=== PATIENT | female | born 1995 | race African-American/Black ===

== ENCOUNTER 2018-07-14 17:22 | Emergency (ER) | payer OTHER ==
[2018-07-14 17:29] VITALS: BP 144/89
[2018-07-14] MEDS ORDERED: IBUPROFEN 800 MG TABLET PO STA (17:48)
--- NOTE | 2018-07-14 17:49 | ED Physician Documentation ---
History of Present Illness - Stated complaint Stated Complaint: FEMALE /BLEED - Chief complaint Chief Complaint: General - History obtained from History obtained from: Patient - History of Present Illness Timing: Other (She is on oral contraceptive pill from which she does not take breaks. She been on it for about 3 months and has not had any periods or bleeding in that time. Starting 3 days ago she was spotting and then progressed to heavier bleeding with clots. She feels a little weak and dizzy and has some pelvic cramping and back pain with it. She has not missed any doses of her control.) Review of Systems Constitutional: reports: Reviewed and negative Cardiac: reports: Reviewed and negative Respiratory: reports: Reviewed and negative PD PAST MEDICAL HISTORY - Past Medical History Past Medical History: No - Present Medications Home Medications: Ambulatory Orders Medication Instructions Recorded Confirmed Estradiol 2 mg PO DAILY #6 tablet 07/14/18 - Allergies Allergies/Adverse Reactions: Allergies Allergy/AdvReac Type Severity Reaction Status Date / Time No Known Drug Allergies Allergy Verified 07/14/18 17:29 PD ED PE NORMAL - Vitals Vital signs reviewed: Yes - General General: Alert and oriented X 3, No acute distress - Abdomen Abdomen: Normal bowel sounds, Soft, Non tender - Back Back: No CVA TTP, No spinal TTP - Neuro Neuro: Alert and oriented X 3, Normal speech Results - Vitals Vitals: Vital Signs - 24 hr 07/14/18 17:24 Temperature 36.8 C Heart Rate 77 Respiratory 14 Rate Blood Pressure 144/89 H O2 Saturation 100 Oxygen O2 Source Room air - Labs Labs: Laboratory Tests 07/14/18 07/14/18 07/14/18 18:11 18:11 18:23 WBC 8.7 RBC 4.75 Hgb 10.7 L Hct 33.4 L MCV 70.3 L MCH 22.6 L MCHC 32.1 RDW 17.4 H Plt Count 427 MPV 7.1 L Neut # (Auto) 5.7 Lymph # (Auto) 2.3 [place] # (Auto) 0.6 Eos # (Auto) 0.0 Baso # (Auto) 0.1 Absolute Nucleated RBC 0.00 Nucleated RBC % 0.0 Serum HCG, Qual NEGATIVE Urine Color YELLOW Urine Clarity CLEAR Urine pH 7.5 Ur Specific [place] 1.010 Urine Protein NEGATIVE Urine Glucose (UA) NEGATIVE Urine Ketones NEGATIVE Urine Occult Blood MODERATE H Urine Nitrite NEGATIVE Urine Bilirubin NEGATIVE Urine Urobilinogen 0.2 (NORMAL) Ur Leukocyte Esterase NEGATIVE Ur Microscopic Review INDICATED Urine Culture Comments Not Reportable PD MEDICAL DECISION MAKING - ED course ED course: This is a young woman with normal hemodynamics who presents with breakthrough bleeding on oral contraceptive pills. Enough to make her mildly anemic. No prior numbers are available for comparison. She is started on estrogen in addition to her combination pill to stanch the bleeding. Departure - Departure Disposition: Home, Self Care Clinical Impression: Breakthrough bleeding on control pills Anemia Qualifiers: Anemia type: unspecified type Qualified Code(s): D64.9 - Anemia, unspecified Condition: Good Record reviewed to determine appropriate education?: Yes Instructions: ED Bleed Irregular Vaginal Follow-Up: [facility] [Provider Group] - Within 1 week Prescriptions: Estradiol 2 mg PO DAILY #6 tablet Comments: Call your doctor to arrange a follow-up appointment, make the next available appointment. In the interim, return anytime if worse or if new symptoms develop.
[2018-07-14 18:23] LABS: BASOPHILS # (AUTO) 0.1 10^3/uL (0.0-0.1); BASOPHILS % (AUTO) 1.3 %; EOSINOPHILS % (AUTO) 0.5 %; HGB - HEMOGLOBIN 10.7 g/dL (12.0-16.0); LYMPHOCYTES # (AUTO) 2.3 10^3/uL (1.5-3.5); LYMPHOCYTES % (AUTO) 26.4 %; MEAN CORPUSCULAR HEMOGLOBIN 22.6 pg (27.0-31.0); MEAN CORPUSCULAR HGB CONC 32.1 g/dL (32.0-36.0); MEAN CORPUSCULAR VOLUME 70.3 fL (81.0-99.0); MEAN PLATELET VOLUME 7.1 fL (7.9-10.8); MONOCYTES # (AUTO) 0.6 10^3/uL (0.0-1.0); MONOCYTES % (AUTO) 6.8 %; NEUTROPHILS # (AUTO) 5.7 10^3/uL (1.5-6.6); PLT - PLATELET COUNT 427 10^3/uL (130-450); RED BLOOD COUNT 4.75 10^6/uL (4.20-5.40); RED CELL DISTRIBUTION WIDTH 17.4 % (12.0-15.0); WHITE BLOOD COUNT 8.7 x10^3/uL (4.8-10.8)
[2018-07-14 18:47] LABS: HCG,QUALITATIVE BLOOD NEGATIVE
[2018-07-14 18:53] LABS: BILIRUBIN,URINE NEGATIVE (NEGATIVE); GLUCOSE, URINE (UA) NEGATIVE (NEGATIVE); KETONES,URINE (UA) NEGATIVE (NEGATIVE); LEUKOCYTE ESTERASE, URINE NEGATIVE (NEGATIVE); NITRITE,URINE NEGATIVE (NEGATIVE); OCCULT BLOOD,URINE MODERATE (NEGATIVE); PH,URINE 7.5 PH (5.0-7.5); PROTEIN,URINE NEGATIVE (NEGATIVE); UROBILINOGEN,URINE 0.2 (NORMAL) E.U./dL (NORMAL)
[2018-07-14] MEDS ORDERED: ESTRADIOL 1 MG TABLET PO STA (18:53)
[2018-07-14 18:57] LABS: CLARITY,URINE CLEAR (CLEAR)
[2018-07-14 19:14] LABS: BACTERIA,URINE Few /HPF (None Seen); RBC,URINE 0-5 /HPF (0-5); SQUAMOUS EPITHELIAL CELL,UR FEW Squamous (<= Few)
== END 2018-07-14 19:10 | disposition home or self-care (01) ==
LOC: ED 17:22
DX: D50.0 Iron deficiency anemia secondary to blood loss (chronic) (principal); N93.9 Abnormal uterine and vaginal bleeding, unspecified; Z79.3 Long term (current) use of hormonal contraceptives
CPT/HCPCS: 36415; 81001; 84703; 85025; 86900; 86901; 99283; A9270; 81003; 87086

== ENCOUNTER 2018-07-23 22:57 | Emergency (ER) | payer OTHER ==
--- NOTE | 2018-07-23 23:17 | ED Physician Documentation ---
History of Present Illness - Stated complaint Stated Complaint: ABD PX/VOMITING - Chief complaint Chief Complaint: Abd Pain - History obtained from History obtained from: Patient - History of Present Illness Timing: Prior to arrival - Additonal information Additional information: Patient is a previously healthy 22-year-old female presenting with left-sided abdominal pain that began about 3 hours ago after eating chips. Patient also complains of nausea and vomiting, but denies fever, urinary changes, stool changes, vaginal complaints such as new vaginal bleeding. Patient denies symptoms being similar to acid reflux, although she describes discomfort as burning. However, patient was seen for abnormal vaginal bleeding last week and started on estradiol. Patient has not taken any medications prior to arrival. No other improving or worsening symptoms noted. 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 : None HEENT: None Psych: None Musculoskeletal: None Derm: None - Past Surgical History Past Surgical History: No - Present Medications Home Medications: Ambulatory Orders Medication Instructions Recorded Confirmed Estradiol 2 mg PO DAILY #6 tablet 07/14/18 07/23/18 - Allergies Allergies/Adverse Reactions: Allergies Allergy/AdvReac Type Severity Reaction Status Date / Time No Known Drug Allergies Allergy Verified 07/23/18 23:03 - Social History Does the pt smoke?: No Smoking Status: Never smoker Does the pt drink ETOH?: Yes Does the pt have substance abuse?: No - Immunizations Immunizations are current?: Yes - POLST Patient has POLST: No PD ED PE NORMAL - Vitals Vital signs reviewed: Yes - General General: Alert and oriented X 3, No acute distress, Well developed/nourished - HEENT HEENT: Atraumatic, Moist mucous membranes - Cardiac Cardiac: RRR, No murmur - Respiratory Respiratory: No respiratory distress, Clear bilaterally - Abdomen Abdomen: Normal bowel sounds, Soft, Non distended. No: Non tender (Moderate left-sided diffuse pain with palpation) - Derm Derm: Normal color, Warm and dry, No rash - Extremities Extremities: No deformity, No tenderness to palpate - Neuro Neuro: Alert and oriented X 3, No motor deficit, No sensory deficit - Psych Psych: Normal mood, Normal affect Results - Vitals Vitals: Vital Signs - 24 hr 07/23/18 22:59 Temperature 36.7 C Heart Rate 99 Respiratory 16 Rate Blood Pressure 142/79 H O2 Saturation 100 Oxygen O2 Source Room air - Labs Labs: Laboratory Tests 07/23/18 07/23/18 07/23/18 23:30 23:30 23:30 WBC 10.0 RBC 4.74 Hgb 10.7 L Hct 33.5 L MCV 70.7 L MCH 22.5 L MCHC 31.9 L RDW 17.6 H Plt Count 463 H MPV 7.3 L Neut # (Auto) 6.4 Lymph # (Auto) 2.7 [place] # (Auto) 0.7 Eos # (Auto) 0.1 Baso # (Auto) 0.1 Absolute Nucleated RBC 0.00 Nucleated RBC % 0.0 Sodium 139 Potassium 3.5 Chloride 103 Carbon Dioxide 23 Anion Gap 13.0 BUN 10 Creatinine 0.8 Estimated GFR (MDRD) 110 Glucose 88 Calcium 9.2 Total Bilirubin 0.3 AST 15 ALT < 10 L Alkaline Phosphatase 66 Total Protein 8.9 H Albumin 4.0 Globulin 4.9 H Albumin/Globulin Ratio 0.8 L Lipase 50 HCG, Quant < 0.60 Urine Color Urine Clarity Urine pH Ur Specific [place] Urine Protein Urine Glucose (UA) Urine Ketones Urine Occult Blood Urine Nitrite Urine Bilirubin Urine Urobilinogen Ur Leukocyte Esterase Ur Microscopic Review Urine Culture Comments 07/23/18 23:30 WBC RBC Hgb Hct MCV MCH MCHC RDW Plt Count MPV Neut # (Auto) Lymph # (Auto) [place] # (Auto) Eos # (Auto) Baso # (Auto) Absolute Nucleated RBC Nucleated RBC % Sodium Potassium Chloride Carbon Dioxide Anion Gap BUN Creatinine Estimated GFR (MDRD) Glucose Calcium Total Bilirubin AST ALT Alkaline Phosphatase Total Protein Albumin Globulin Albumin/Globulin Ratio Lipase HCG, Quant Urine Color YELLOW Urine Clarity CLEAR Urine pH 6.5 Ur Specific [place] 1.010 Urine Protein NEGATIVE Urine Glucose (UA) NEGATIVE Urine Ketones NEGATIVE Urine Occult Blood TRACE-INTA Urine Nitrite NEGATIVE Urine Bilirubin NEGATIVE Urine Urobilinogen 0.2 (NORMAL) Ur Leukocyte Esterase NEGATIVE Ur Microscopic Review NOT INDICATED Urine Culture Comments NOT INDICATED PD MEDICAL DECISION MAKING - ED course Complexity details: reviewed results, re-evaluated patient, considered differential, d/w patient, d/w family ED course: Patient presenting with left-sided abdominal discomfort after eating earlier tonight. Do feel that patient could be experiencing foodborne or viral illness. Given location also considered splenomegaly or other spleen complication, although feel this is highly unlikely. Also consider diverticulitis and again given age and otherwise healthy, also feel less likely. Do not feel patient was at high risk for appendicitis, liver disease, pancreatitis, or gallbladder disease, but considered. Patient also denied symptoms that would raise high suspicion for renal disease, UTI, or pelvic complications including , ovarian torsion, or ovarian cyst, however, considered. Patient received IV fluid and GI cocktail. Screening lab work and urinalysis obtained. negative. No evidence of UTI. Screening lab work relatively unremarkable except for mild anemia, likely due to heavy vaginal bleeding recently that has since resolved. Do not feel patient requires emergent imaging at this time, but can be discharged home with supportive cares with strict return precautions and close follow-up. Discussed results and recommendations with patient and family who are comfortable with this plan. Departure - Departure Disposition: 01 Home, Self Care Clinical Impression: Abdominal pain Qualifiers: Abdominal location: left lower quadrant Qualified Code(s): R10.32 - Left lower quadrant pain Condition: Good Instructions: ED Abdominal Pain Unkn Cause Follow-Up: Janak Casillas MD [Primary Care Provider] - Within 3 Days Comments: Please continue any home medications as previously instructed. Recommend hydration with Powerade/Gatorade and bland diet advancing as tolerated. Recommend ibuprofen/Tylenol as needed for discomfort and if struggling with producing bowel movements, [id number] laxative or stool softener. Return to ED immediately if experience worsening pain, recurrent vomiting, fever, stool changes, urinary changes, back pain or other concerns. Please follow-up with primary care physician in next 2 to 3 days.
[2018-07-23] MEDS ORDERED: MAG HYDROX/AL HYDROX/SIMETH 30 ML UDC PO STA (23:24)
[2018-07-23] MEDS ORDERED: SODIUM CHLORIDE 0.9% 1,000 ML IV ONE (23:24)
[2018-07-23 23:45] LABS: BASOPHILS # (AUTO) 0.1 10^3/uL (0.0-0.1); BASOPHILS % (AUTO) 1.4 %; EOSINOPHILS # (AUTO) 0.1 10^3/uL (0.0-0.7); EOSINOPHILS % (AUTO) 0.5 %; HGB - HEMOGLOBIN 10.7 g/dL (12.0-16.0); LYMPHOCYTES # (AUTO) 2.7 10^3/uL (1.5-3.5); LYMPHOCYTES % (AUTO) 27.1 %; MEAN CORPUSCULAR HEMOGLOBIN 22.5 pg (27.0-31.0); MEAN CORPUSCULAR HGB CONC 31.9 g/dL (32.0-36.0); MEAN CORPUSCULAR VOLUME 70.7 fL (81.0-99.0); MEAN PLATELET VOLUME 7.3 fL (7.9-10.8); MONOCYTES # (AUTO) 0.7 10^3/uL (0.0-1.0); MONOCYTES % (AUTO) 6.8 %; NEUTROPHILS # (AUTO) 6.4 10^3/uL (1.5-6.6); NEUTROPHILS % (AUTO) 64.2 %; PLT - PLATELET COUNT 463 10^3/uL (130-450); RED BLOOD COUNT 4.74 10^6/uL (4.20-5.40); RED CELL DISTRIBUTION WIDTH 17.6 % (12.0-15.0)
[2018-07-24 00:05] LABS: ALBUMIN/GLOBULIN RATIO 0.8 (1.0-2.2); ALKALINE PHOSPHATASE 66 IU/L (42-121); ALT ALANINE AMINOTRANSFERASE < 10 IU/L (10-60); AST ASPARTATE AMINOTRANSFERASE 15 IU/L (10-42); BILIRUBIN,TOTAL 0.3 mg/dL (0.2-1.0); BUN - BLOOD UREA NITROGEN 10 mg/dL (6-20); CALCIUM 9.2 mg/dL (8.5-10.3); CARBON DIOXIDE - CO2 23 mmol/L (21-32); CHLORIDE 103 mmol/L (101-111); CREATININE 0.8 mg/dL (0.4-1.0); GFR - MDRD 110 (>89); GLUCOSE 88 mg/dL (70-100); LIPASE 50 U/L (22-51); SODIUM 139 mmol/L (135-145); TOTAL PROTEIN 8.9 g/dL (6.7-8.2)
[2018-07-24 00:38] LABS: BILIRUBIN,URINE NEGATIVE (NEGATIVE); GLUCOSE, URINE (UA) NEGATIVE (NEGATIVE); KETONES,URINE (UA) NEGATIVE (NEGATIVE); LEUKOCYTE ESTERASE, URINE NEGATIVE (NEGATIVE); NITRITE,URINE NEGATIVE (NEGATIVE); OCCULT BLOOD,URINE TRACE-INTA (NEGATIVE); PH,URINE 6.5 PH (5.0-7.5); PROTEIN,URINE NEGATIVE (NEGATIVE); UROBILINOGEN,URINE 0.2 (NORMAL) E.U./dL (NORMAL)
[2018-07-24 00:40] LABS: CLARITY,URINE CLEAR (CLEAR)
[2018-07-24 01:10] VITALS: BP 137/83
== END 2018-07-24 01:10 | disposition home or self-care (01) ==
LOC: ED 22:57
DX: R10.32 Left lower quadrant pain (principal); R11.2 Nausea with vomiting, unspecified; D64.9 Anemia, unspecified
CPT/HCPCS: 36415; 80053; 81003; 83690; 84702; 85025; 99283; A9270; 81001; 87086

== ENCOUNTER 2020-10-12 14:06 | Emergency (ER) | payer OTHER ==
[2020-10-12] MEDS ORDERED: HYDROmorphone 1 MG/ML CARPUJECT IVP STA (14:49)
[2020-10-12] MEDS ORDERED: SODIUM CHLORIDE 0.9% 1,000 ML IV STA ×2 (14:49)
--- NOTE | 2020-10-12 14:53 | ED Physician Documentation ---
History of Present Illness - Stated complaint Stated Complaint: HEADACHE - Chief complaint Chief Complaint: Neuro - Additonal information Additional information: 25-year-old female presents the emergency department for evaluation of generaliz ed fatigue, myalgias chills subjective fevers and headache for 3 days. She has had no nausea or vomiting. Denies dysuria. Denies cough or congestion. Denies similar illness and others at home. She has taken Motrin and Tylenol without relief of symptoms. She is not vaccinated for COVID-19. She does have a 2-month-old at home who is otherwise well. Patient is breast-feeding. Denies any pertinent past medical history. Takes no prescribed medications. In the room she appears very well alert and oriented. No apparent distress. Only noted abnormality is tachycardia. Review of Systems Constitutional: reports: Fever, Chills, Myalgias, Fatigue Eyes: reports: Reviewed and negative Ears: reports: Reviewed and negative Nose: reports: Reviewed and negative Throat: reports: Reviewed and negative Cardiac: denies: Chest pain / pressure, Palpitations Respiratory: denies: Dyspnea, Cough GI: denies: Abdominal Pain, Nausea, Vomiting, Diarrhea : reports: Reviewed and negative Skin: reports: Reviewed and negative Musculoskeletal: denies: Neck pain Neurologic: reports: Headache. 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 : None HEENT: None Psych: None Musculoskeletal: None Derm: None - Past Surgical History Past Surgical History: No - Present Medications Home Medications: Ambulatory Orders Medication Instructions Recorded Confirmed cephALEXin [Keflex] 500 mg PO BID #20 10/12/20 - Allergies Allergies/Adverse Reactions: Allergies Allergy/AdvReac Type Severity Reaction Status Date / Time No Known Drug Allergies Allergy Verified 10/12/20 14:09 - Social History Does the pt smoke?: No Smoking Status: Never smoker Does the pt drink ETOH?: Yes Does the pt have substance abuse?: No - Immunizations Immunizations are current?: Yes - POLST Patient has POLST: No PD ED PE EXPANDED - General General: Alert, No acute distress, Well developed/nourished - HEENT HEENT: Atraumatic, PERRL, Ears normal, Moist mucous membranes, Pharynx normal - Neck Neck: Supple w/out meningeal sx, No tenderness. No: Stiff neck, Brudzinki's, Kernig's, Adenopathy - Cardiac Cardiac: Tachy, Radial strong equal, Pedal strong equal, Cap refill < 2 sec. No: Murmur Present - Respiratory Respiratory: Clear to ausultation hawk. No: Distress, Labored - Abdomen Abdomen: Normal Bowel sounds. No: Tender to palpation - Derm Derm: Normal color, Warm and dry. No: Rash - Extremities Extremities: Normal, Pedal Pulses Present. No: Deformity, Tenderness, Pedal edema bilateral - Neuro Neuro: Alert and Oriented X 3, CNII-XII intact, Normal gait, Normal speech - GCS Eye Opening: Spontaneous Motor: Obeys Commands Verbal: Oriented Total: 15 Results - Vitals Vitals: Vital Signs - 24 hr 10/12/20 10/12/20 10/12/20 14:09 15:39 15:40 Temperature 37.4 C 38.4 C H Heart Rate 132 H 122 H Respiratory 16 16 Rate Blood Pressure 112/70 108/68 101/65 O2 Saturation 100 99 10/12/20 16:23 Temperature 37.3 C Heart Rate 104 H Respiratory 15 Rate Blood Pressure 108/71 O2 Saturation 99 Oxygen O2 Source Room air - Labs Labs: Laboratory Tests 10/12/20 10/12/20 10/12/20 14:52 14:52 14:52 WBC 33.4 H RBC 4.08 L Hgb 9.2 L Hct 28.9 L MCV 70.8 L MCH 22.5 L MCHC 31.8 L RDW 18.3 H Plt Count 316 MPV 9.1 Neut # (Auto) Not Reportable Lymph # (Auto) Not Reportable [place] # (Auto) Not Reportable Eos # (Auto) Not Reportable Baso # (Auto) Not Reportable Absolute Nucleated RBC Not Reportable Total Counted 100 Band Neuts % (Manual) 3 Abnorm Lymph % (Manual) 0 Nucleated RBC % Not Reportable Neutrophils # (Manual) 30.4 H Lymphocytes # (Manual) 1.7 Monocytes # (Manual) 1.3 H Eosinophils # (Manual) 0.0 Basophils # (Manual) 0.0 Differential Comment MANUAL DIFFERENTIAL WBC Morphology NORMAL APPEARANCE Platelet Estimate NORMAL (130-450,000) Platelet Morphology NORMAL APPEARANCE RBC Morph Micro Appear NORMAL APPEARANCE Sodium 135 Potassium 3.4 L Chloride 99 L Carbon Dioxide 23 Anion Gap 13.0 BUN 14 Creatinine 1.1 H Estimated GFR (MDRD) 74 L Glucose 110 H Lactic Acid Calcium 8.8 Total Bilirubin 0.9 AST 20 ALT 19 Alkaline Phosphatase 118 Total Protein 8.2 Albumin 3.5 Globulin 4.7 H Albumin/Globulin Ratio 0.7 L Lipase 17 L Serum HCG, Qual NEGATIVE Urine Color Urine Clarity Urine pH Ur Specific [place] Urine Protein Urine Glucose (UA) Urine Ketones Urine Occult Blood Urine Nitrite Urine Bilirubin Urine Urobilinogen Ur Leukocyte Esterase Urine RBC Urine WBC Ur Squamous Epith Cells Urine Bacteria Ur Microscopic Review Urine Culture Comments Nasal Adenovirus (PCR) Nasal B. parapertussis DNA (PCR) Nasal Coronavir 229E PCR Nasal Coronavir HKU1 PCR Nasal Coronavir NL63 PCR Nasal Coronavir OC43 PCR Nasal Enterovir/Rhinovir PCR Nasal Influenza B PCR Nasal Influenza A PCR Nasal Parainfluen 1 PCR Nasal Parainfluen 2 PCR Nasal Parainfluen 3 PCR Nasal Parainfluen 4 PCR Nasal RSV (PCR) Nasal B.pertussis DNA PCR Nasal C.pneumoniae (PCR) [place] Human Metapneumo PCR Nasal M.pneumoniae (PCR) Nasal SARS-CoV-2 (PCR) 10/12/20 10/12/20 10/12/20 15:10 15:11 15:21 WBC RBC Hgb Hct MCV MCH MCHC RDW Plt Count MPV Neut # (Auto) Lymph # (Auto) [place] # (Auto) Eos # (Auto) Baso # (Auto) Absolute Nucleated RBC Total Counted Band Neuts % (Manual) Abnorm Lymph % (Manual) Nucleated RBC % Neutrophils # (Manual) Lymphocytes # (Manual) Monocytes # (Manual) Eosinophils # (Manual) Basophils # (Manual) Differential Comment WBC Morphology Platelet Estimate Platelet Morphology RBC Morph Micro Appear Sodium Potassium Chloride Carbon Dioxide Anion Gap BUN Creatinine Estimated GFR (MDRD) Glucose Lactic Acid 1.4 Calcium Total Bilirubin AST ALT Alkaline Phosphatase Total Protein Albumin Globulin Albumin/Globulin Ratio Lipase Serum HCG, Qual Urine Color YELLOW Urine Clarity CLOUDY Urine pH 6.0 Ur Specific [place] 1.020 Urine Protein 100 H Urine Glucose (UA) NEGATIVE Urine Ketones TRACE Urine Occult Blood MODERATE H Urine Nitrite POSITIVE H Urine Bilirubin NEGATIVE Urine Urobilinogen 0.2 (NORMAL) Ur Leukocyte Esterase LARGE H Urine RBC 6-10 H Urine WBC >25 H Ur Squamous Epith Cells FEW Squamous Urine Bacteria Many H Ur Microscopic Review INDICATED Urine Culture Comments INDICATED Nasal Adenovirus (PCR) NOT DETECTED Nasal B. parapertussis DNA (PCR) NOT DETECTED Nasal Coronavir 229E PCR NOT DETECTED Nasal Coronavir HKU1 PCR NOT DETECTED Nasal Coronavir NL63 PCR NOT DETECTED Nasal Coronavir OC43 PCR NOT DETECTED Nasal Enterovir/Rhinovir PCR NOT DETECTED Nasal Influenza B PCR NOT DETECTED Nasal Influenza A PCR NOT DETECTED Nasal Parainfluen 1 PCR NOT DETECTED Nasal Parainfluen 2 PCR NOT DETECTED Nasal Parainfluen 3 PCR NOT DETECTED Nasal Parainfluen 4 PCR NOT DETECTED Nasal RSV (PCR) NOT DETECTED Nasal B.pertussis DNA PCR NOT DETECTED Nasal C.pneumoniae (PCR) NOT DETECTED [place] Human Metapneumo PCR NOT DETECTED Nasal M.pneumoniae (PCR) NOT DETECTED Nasal SARS-CoV-2 (PCR) NOT DETECTED - Rads (name of study) CXR Radiology: Final report received (No acute cardiopulmonary process.) CT abd Radiology: Final report received (Left-sided pyelonephritis. Correlation with UA recommended. Presumably reactive left retroperitoneal adenopathy. Right renal atrophy and scarring. Portal edema suggestive of hepatitis correlation with liver function tests is recommended. Trace bilateral pleural effusions.) PD MEDICAL DECISION MAKING - ED course Complexity details: reviewed results, considered differential, d/w patient ED course: This is a well-appearing 25-year-old female who presents emergency department for evaluation of 3 days of fatigue, myalgias subjective fevers and headaches. This is in the setting of a [id number] vaccination status. She has no vomiting or diarrhea. Denies chest pain cough or shortness of air. Clinically she appears very well though she does have noted tachycardia 132. Cardiopulmonary exam was unrevealing. No abdominal tenderness elicited. She does report a headache but has a nonfocal neuro and cerebellar exam. No nuchal rigidity. Patient will be screened for COVID-19 as well as obtain screening labs as otherwise indicated. Patient will be given 2 L of IV fluids and Dilaudid for headache and reassess. Patient is COVID-19 negative. Her UA however is frankly consistent with an infection. Given the leukocytosis and fever here in the ER we will obtain a CT of the abdomen pelvis to rule out pyelonephritis. 1 g of ceftriaxone given here in the emergency department. Chest x-ray without focal opacity. Blood cultures are pending. CT of the abdomen confirms left-sided pyelonephritis. She also does have findings of right renal atrophy and scarring. Renal function is preserved. Following 2 L of IV fluids and some Dilaudid her heart rate has normalized to 99. She is free of pain and remains free of abdominal pain or CVA tenderness. Patient will be started on Keflex for her pyelonephritis and have that very close follow-up with her primary care provider. Given that she does meet the criteria for sepsis she was offered admission to the hospital but she declines this at this time as she does have a 2-month-old baby at home that she would like to return to. She is clinically stable and given her young age and otherwise good health I feel that this is an okay decision. Emergent return precautions were discussed. Departure - Departure Disposition: Home, Self Care Clinical Impression: Pyelonephritis Leukocytosis Qualifiers: Leukocytosis type: unspecified Qualified Code(s): D72.829 - Elevated white blood cell count, unspecified Condition: Stable Record reviewed to determine appropriate education?: Yes Instructions: Pyelonephritis Dc Prescriptions: cephALEXin [Keflex] 500 mg PO BID #20 Comments: Leonid you were seen in the ER today for fever, headache neck pain. Screening labs showed a fairly high white blood cell count. Your urine also showed showed a severe infection. The CT of your abdomen did show that you have a kidney infection. You were given IV antibiotics here in the emergency department. I would like you to fill the prescription for the cephalexin and begin taking twice daily for the next 10 days. It is very important that you have follow-up with your primary care doctor in about 4 days time to ensure that your symptoms are resolving. If you are not feeling better, you return to have a fever, any abdominal pain or vomiting please return immediately to the ER. Because you received a dose of Dilaudid here in the emergency department I do advise that you pump and dump 1 cycle of breastmilk however after that you may breast-feed your infant normally.
[2020-10-12 15:01] LABS: BASOPHILS % (AUTO) 0.4 %; EOSINOPHILS % (AUTO) 0.1 %; HCT - HEMATOCRIT 28.9 % (37.0-47.0); HGB - HEMOGLOBIN 9.2 g/dL (12.0-16.0); LYMPHOCYTES % (AUTO) 3.9 %; MEAN CORPUSCULAR HEMOGLOBIN 22.5 pg (27.0-31.0); MEAN CORPUSCULAR HGB CONC 31.8 g/dL (32.0-36.0); MEAN CORPUSCULAR VOLUME 70.8 fL (81.0-99.0); MEAN PLATELET VOLUME 9.1 fL (7.9-10.8); MONOCYTES % (AUTO) 9.9 %; NEUTROPHILS % (AUTO) 81.5 %; PLT - PLATELET COUNT 316 10^3/uL (130-450); RED BLOOD COUNT 4.08 10^6/uL (4.20-5.40); RED CELL DISTRIBUTION WIDTH 18.3 % (12.0-15.0); WHITE BLOOD COUNT 33.4 x10^3/uL (4.8-10.8)
--- NOTE | 2020-10-12 15:01 | XRAY Report ---
PROCEDURE: Chest 1 View X-Ray INDICATIONS: chest pain TECHNIQUE: One view of the chest was acquired. COMPARISON: None. FINDINGS: Surgical changes and devices: None. Lungs and pleura: No pleural effusions or pneumothorax. Lungs are clear. Mediastinum: Mediastinal contours appear normal. Heart size is normal. Bones and chest wall: No suspicious bony lesions. Overlying soft tissues appear unremarkable. IMPRESSION: No acute cardiopulmonary pathology. Reviewed by: Raul Tello MD on 10/12/2020 3:00 PM PDT Approved by: Raul Tello MD on 10/12/2020 3:00 PM PDT Station ID: [id number]
[2020-10-12 15:05] LABS: ABNORMAL LYMPHS % (MANUAL) 0 %
[2020-10-12 15:20] LABS: BILIRUBIN,URINE NEGATIVE (NEGATIVE); CLARITY,URINE CLOUDY (CLEAR); GLUCOSE, URINE (UA) NEGATIVE (NEGATIVE); KETONES,URINE (UA) TRACE mg/dL (NEGATIVE); LEUKOCYTE ESTERASE, URINE LARGE (NEGATIVE); NITRITE,URINE POSITIVE (NEGATIVE); OCCULT BLOOD,URINE MODERATE (NEGATIVE); PROTEIN,URINE 100 mg/dL (NEGATIVE); UROBILINOGEN,URINE 0.2 (NORMAL) E.U./dL (NORMAL)
[2020-10-12 15:21] LABS: ALBUMIN 3.5 g/dL (3.2-5.5); ALBUMIN/GLOBULIN RATIO 0.7 (1.0-2.2); BILIRUBIN,TOTAL 0.9 mg/dL (0.2-1.0); CALCIUM 8.8 mg/dL (8.5-10.3); CREATININE 1.1 mg/dL (0.4-1.0); POTASSIUM 3.4 mmol/L (3.5-5.0); TOTAL PROTEIN 8.2 g/dL (6.7-8.2)
[2020-10-12 15:25] LABS: BAND NEUTROPHILS % (MANUAL) 3 %; DIFFERENTIAL COMMENT MANUAL DIFFERENTIAL; LYMPHOCYTES # (MANUAL) 1.7 10^3/uL (1.5-3.5); LYMPHOCYTES % (MANUAL) 5 %; MONOCYTES # (MANUAL) 1.3 10^3/uL (0.0-1.0); NEUTROPHILS # (MANUAL) 30.4 10^3/uL (1.5-6.6); PLATELET ESTIMATE, MANUAL NORMAL (130-450,000) (NORMAL); PLATELET MORPHOLOGY NORMAL APPEARANCE (NORMAL); RBC MORPHOLOGY (MULTIPLE) NORMAL APPEARANCE (NORMAL); WBC MORPHOLOGY (MULTIPLE) NORMAL APPEARANCE (NORMAL)
[2020-10-12 15:26] LABS: HCG,QUALITATIVE BLOOD NEGATIVE
[2020-10-12 15:33] LABS: BACTERIA,URINE Many /HPF (None Seen); SQUAMOUS EPITHELIAL CELL,UR FEW Squamous (<= Few); WBC,URINE >25 /HPF (0-5)
[2020-10-12] MEDS ORDERED: cefTRIAXone 1 GM VIAL IVP STA (15:39)
[2020-10-12] MEDS ORDERED: ACETAMINOPHEN 325 MG TABLET PO STA (15:45)
[2020-10-12] MEDS ORDERED: IOPAMIDOL-300 100 ML VIAL ONE (15:55)
[2020-10-12 16:07] LABS: B. PARAPERTUSSIS- RESP PCR PAN NOT DETECTED; B. PERTUSSIS- RESP PCR PANEL NOT DETECTED; C. PNEUMONIAE- RESP PCR PANEL NOT DETECTED; CORONAVIRUS 229E-RESP PCR NOT DETECTED; CORONAVIRUS HKU1-RESP PCR NOT DETECTED; CORONAVIRUS NL63-RESP PCR NOT DETECTED; CORONAVIRUS OC43-RESP PCR NOT DETECTED; HUMAN METAPNEUMOVIRUS NOT DETECTED; INFLUENZA A- RESP PCR PANEL NOT DETECTED; INFLUENZA B - RESP PCR PANEL NOT DETECTED; M. PNEUMONIAE- RESP PCR PANEL NOT DETECTED; PARAINFLUENZA VIRUS 1 NOT DETECTED; PARAINFLUENZA VIRUS 2 NOT DETECTED; PARAINFLUENZA VIRUS 3 NOT DETECTED; PARAINFLUENZA VIRUS 4 NOT DETECTED; RHINOVIRUS/ENTEROVIRUS NOT DETECTED; RSV- RESP PCR PANEL NOT DETECTED; SARS-CoV-2 -RESP PCR PANEL NOT DETECTED
--- NOTE | 2020-10-12 16:57 | CT Report ---
PROCEDURE: Abdomen/Pelvis W INDICATIONS: leukocytosis; UTI; ? pyelo CONTRAST: IV CONTRAST: Isovue 300 ml: 100 PO CONTRAST: *NO PO CONTRAST TECHNIQUE: After the administration of IV contrast, 5 mm thick sections acquired from the diaphragms to the symp hysis. 5 mm thick coronal and sagittal reformats were acquired. For radiation dose reduction, the f ollowing was used: automated exposure control, adjustment of mA and/or kV according to patient size. COMPARISON: None. FINDINGS: Image quality: Excellent. ABDOMEN: Lung bases: Trace bilateral pleural effusions. Lung bases are otherwise clear. Heart size is normal . Solid organs: Liver and spleen are normal in size. There is mild periportal hypodensity. Gallbladder is grossly unremarkable Biliary system is non dilated. Pancreas enhances normally. No adrenal nod ules. Left kidney is normal in size. Moderate right renal atrophy and scarring is present. There are multifocal patchy wedge-shaped low-density regions within the left renal parenchyma, predominantly in volving the interpolar kidney and superior pole. There is mild left pelviectasis. 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 Peritoneum and bowel: Bowel loops demonstrate normal wall thickness and caliber. Appendix is not de finitively seen. No evidence of appendicitis. No free fluid or air. Nodes and vessels: There are multiple mildly enlarged retroperitoneal lymph nodes, largest of which i s in the left para-aortic location measuring 13 mm short axis. Aorta and inferior vena cava are lola l in size. Miscellaneous: No ventral hernias. Rectus diastasis is present. PELVIS: Genitourinary: Bladder wall thickness is normal. Miscellaneous: No inguinal hernias or adenopathy. Bones: No suspicious bony lesions. No vertebral body compression fractures. IMPRESSION: 1. Left-sided pyelonephritis. Correlation with urinalysis results is recommended. 2. Presumably reactive left retroperitoneal adenopathy. 3. Right renal atrophy and scarring. 4. Periportal edema, suggestive of hepatitis. Correlation with liver function tests is recommended. 5. Trace bilateral pleural effusions. Reviewed by: Wu Torres MD on 10/12/2020 4:56 PM PDT Approved by: Wu Torres MD on 10/12/2020 4:56 PM PDT Station ID: [id number]
[2020-10-12] MEDS ORDERED: cephALEXin 250 MG CAPSULE PO STA (17:25)
[2020-10-12 17:56] VITALS: BP 112/73
[2020-10-12] MEDS ORDERED: IOPAMIDOL-300 100 ML VIAL IVP ONE (17:59)
== END 2020-10-12 17:56 | disposition home or self-care (01) ==
LOC: ED 14:06
DX: N10 Acute pyelonephritis (principal); D72.829 Elevated white blood cell count, unspecified; Z20.822 Contact with and (suspected) exposure to COVID-19
CPT/HCPCS: 0202U; 36415; 71045; 74177; 80053; 81001; 83605; 83690; 84703; 85025; 87040; 87077; 87086; 87181; 96361; 96374; 96375; 99284; A9270; J1170; Q9967; 81003

== ENCOUNTER 2020-10-13 04:22 | Inpatient (IN) | payer OTHER ==
--- NOTE | 2020-10-13 04:36 | ED Physician Documentation ---
PD HPI FEMALE - Stated complaint Stated Complaint: BACK PX/FEM - History obtained from History obtained from: Patient - History of Present Illness Timing - onset: How many days ago Timing - duration: Days (1-2) Timing - details: Gradual onset, Still present Associated symptoms: Fever, Abdominal pain, Back pain Contributing factors: No: (2 months post .) Recently seen: Emergency Dept (She was seen about 12 hours prior for similar symptoms with diagnosed pyelonephritis by urinalysis and CT. Opted for trying home but has persistent nausea and vomiting, abdomen and back pain and feverish.) Review of Systems Constitutional: reports: Fever, Chills Nose: denies: Rhinorrhea / runny nose, Congestion Throat: denies: Sore throat Respiratory: denies: Cough GI: reports: Abdominal Pain, Nausea, Vomiting. denies: Diarrhea : reports: Frequency. denies: Discharge Neurologic: reports: Generalized weakness, Headache. denies: Near syncope, Altered mental status, Head injury PD PAST MEDICAL HISTORY - Past Medical History Cardiovascular: None Respiratory: None Neuro: None Endocrine/Autoimmune: None GI: None EVP OPERATIONS: None : None HEENT: None Psych: None Musculoskeletal: None Derm: None - Past Surgical History Past Surgical History: No - Present Medications Home Medications: Ambulatory Orders Medication Instructions Recorded Confirmed cephALEXin [Keflex] 500 mg PO BID #20 10/12/20 - Allergies Allergies/Adverse Reactions: Allergies Allergy/AdvReac Type Severity Reaction Status Date / Time No Known Drug Allergies Allergy Verified 10/12/20 14:09 - Social History Does the pt smoke?: No Smoking Status: Never smoker Does the pt drink ETOH?: Yes Does the pt have substance abuse?: No - Immunizations Immunizations are current?: Yes - POLST Patient has POLST: No PD ED PE NORMAL - Vitals Vital signs reviewed: Yes (tachycardic) - General General: Alert and oriented X 3 - HEENT HEENT: Pharynx benign - Neck Neck: Supple, no meningeal sign, No adenopathy - Cardiac Cardiac: RRR, No murmur - Respiratory Respiratory: Clear bilaterally - Abdomen Abdomen: Normal bowel sounds, Soft, Non distended, No organomegaly, Other (tender suprapubic and left lower abd without guarding. Bilateral CVA tender, more to the left. ) - Female Female : Deferred - Rectal Rectal: Deferred - Back Back: Other (CVA tender, more to the left. ) - Derm Derm: Normal color, Warm and dry, No rash - Extremities Extremities: No edema, No calf tenderness / cord - Neuro Neuro: Alert and oriented X 3, No motor deficit, Normal speech Results - Vitals Vitals: Vital Signs - 24 hr 10/13/20 04:38 Temperature 37.7 C Heart Rate 135 H Respiratory 20 Rate Blood Pressure 110/55 L O2 Saturation 100 Oxygen O2 Source Room air - Labs Labs: Laboratory Tests 10/13/20 10/13/20 05:00 05:00 WBC 25.5 H RBC 3.73 L Hgb 8.6 L Hct 26.5 L MCV 71.0 L MCH 23.1 L MCHC 32.5 RDW 18.4 H Plt Count 309 MPV 9.3 Sodium 133 L Potassium 3.1 L Chloride 101 Carbon Dioxide 20 L Anion Gap 12.0 BUN 11 Creatinine 0.8 Estimated GFR (MDRD) 107 Glucose 108 H Calcium 8.6 Total Bilirubin 0.8 AST 19 ALT 16 Alkaline Phosphatase 121 Total Protein 7.9 Albumin 3.4 Globulin 4.5 H Albumin/Globulin Ratio 0.8 L Lipase 18 L PD MEDICAL DECISION MAKING - ED course Complexity details: reviewed old records, reviewed results, considered differential, d/w patient Departure - Departure Disposition: ED Place in Observation Clinical Impression: Pyelonephritis, Abdominal pain, Nausea and vomiting Condition: Stable
[2020-10-13] MEDS ORDERED: SODIUM CHLORIDE 0.9% 1,000 ML IV STA (04:48)
[2020-10-13] MEDS ORDERED: ONDANSETRON 4 MG/2 ML VIAL IVP STA (04:48)
[2020-10-13] MEDS ORDERED: MORPHINE 2 MG/ML CARPUJECT IVP STA (04:48)
[2020-10-13] MEDS ORDERED: cefTRIAXone 1 GM VIAL IVP STA (04:53)
[2020-10-13] MEDS ORDERED: KETOROLAC 15 MG/ML VIAL IVP STA (04:53)
[2020-10-13] MEDS ORDERED: ACETAMINOPHEN 325 MG TABLET PO STA (04:54)
[2020-10-13 05:09] LABS: BASOPHILS % (AUTO) 0.2 %; EOSINOPHILS % (AUTO) 0.1 %; HCT - HEMATOCRIT 26.5 % (37.0-47.0); HGB - HEMOGLOBIN 8.6 g/dL (12.0-16.0); LYMPHOCYTES % (AUTO) 4.8 %; MEAN CORPUSCULAR HEMOGLOBIN 23.1 pg (27.0-31.0); MEAN CORPUSCULAR HGB CONC 32.5 g/dL (32.0-36.0); MEAN PLATELET VOLUME 9.3 fL (7.9-10.8); MONOCYTES % (AUTO) 8.9 %; NEUTROPHILS % (AUTO) 84.2 %; PLT - PLATELET COUNT 309 10^3/uL (130-450); RED BLOOD COUNT 3.73 10^6/uL (4.20-5.40); RED CELL DISTRIBUTION WIDTH 18.4 % (12.0-15.0); WHITE BLOOD COUNT 25.5 x10^3/uL (4.8-10.8)
[2020-10-13 05:11] LABS: ABNORMAL LYMPHS % (MANUAL) 0 %; BAND NEUTROPHILS % (MANUAL) 0 %
[2020-10-13 05:25] LABS: ALBUMIN 3.4 g/dL (3.2-5.5); ALBUMIN/GLOBULIN RATIO 0.8 (1.0-2.2); BILIRUBIN,TOTAL 0.8 mg/dL (0.2-1.0); CALCIUM 8.6 mg/dL (8.5-10.3); CREATININE 0.8 mg/dL (0.4-1.0); POTASSIUM 3.1 mmol/L (3.5-5.0); TOTAL PROTEIN 7.9 g/dL (6.7-8.2)
[2020-10-13] MEDS ORDERED: ONDANSETRON ODT 4 MG TABLET TL PRN (05:26)
[2020-10-13] MEDS ORDERED: ONDANSETRON 4 MG/2 ML VIAL IVP PRN (05:26)
[2020-10-13 05:28] LABS: LYMPHOCYTES % (MANUAL) 4 %; MONOCYTES # (MANUAL) 1.8 10^3/uL (0.0-1.0); NEUTROPHILS # (MANUAL) 22.7 10^3/uL (1.5-6.6)
[2020-10-13 05:29] LABS: DIFFERENTIAL COMMENT MANUAL DIFFERENTIAL; PLATELET ESTIMATE, MANUAL NORMAL (130-450,000) (NORMAL); PLATELET MORPHOLOGY NORMAL APPEARANCE (NORMAL); WBC MORPHOLOGY (MULTIPLE) NORMAL APPEARANCE (NORMAL)
--- NOTE | 2020-10-13 05:32 | HISTORY & PHYSICAL EXAMINATION ---
Chief Complaint - Chief Complaint Chief Complaint: Chills and flank pain History of Present Illness - Admitted From Admitted From:: Home - History Obtained From Records Reviewed: Yes History obtained from: Patient, ER Physician, EMR - History of Present Illness HPI Comment/Other: This is a 25-year-old female with no significant past medical history who presents this morning complaining of chills and bilateral flank pain. She was seen yesterday in the emergency department after she had complained of chills, headaches for the past 2 to 3 days. She has not had any dysuria, urgency, frequency. Yesterday in the emergency department she had no flank pain but she underwent a CT of the abdomen pelvis and was noted to have left pyelonephritis. Her white count was also noted to be elevated at greater than 30,000. She was given ceftriaxone IV and given the patient preferred to go home, she was discharged on Keflex. She states after she went home she started to develop worsening chills, headache and now she had flank pain. She also complained of e pigastric abdominal pain and had nausea and a small amount of emesis yesterday evening. Given her ongoing symptoms she returned to the emergency department earlier this morning. She has reported subjective fevers but does not have a thermometer at home to measure her temperature. She was checked for Covid yesterday and this was negative. She still does not have any dysuria or urgency but does complain of the flank pain which is worse on the left side. She also complains of headache and neck stiffness. She is currently breast-feeding her 2-month-old child. Here in the emergency department, she was noted to be afebrile but tachycardic with a heart rate in the 130s. Her labs still revealed a significant leukocytosis. Her potassium was 3.1. Given her ongoing symptoms, medicine was consulted for admission. History - Past Medical History Cardiovascular: reports: None Respiratory: reports: None Neuro: reports: None Endocrine/Autoimmune: reports: None GI: reports: None SURGICAL SERVICES COORDINATOR: reports: None HEENT: reports: None Psych: reports: None Musculoskeletal: reports: None Derm: reports: None MRSA Hx?: No Other Past Medical History: Urinary tract infection/ Pyelonephritis. - Family & Social History Family History Comment/Other: Her mother has a history of diabetes otherwise she reports no family history. Living arrangement: At home Living Situation: With family Social History Notes: She lives at home with her spouse and 3 children. She does not smoke or use illicit drugs. She will drink alcohol socially. - POLST Patient has POLST: No Meds/Allgy - Home Medications Home Medications: Ambulatory Orders Medication Instructions Recorded Confirmed cephALEXin [Keflex] 500 mg PO BID #20 10/12/20 - Allergies Allergies/Adverse Reactions: Allergies Allergy/AdvReac Type Severity Reaction Status Date / Time No Known Drug Allergies Allergy Verified 10/12/20 14:09 Review of Systems - Constitutional Constitutional: reports: Fatigue, Fever, Chills, Malaise, Poor appetite - Eyes Eyes: reports: Other (Photophobia) - Cardiovascular Cariovascular: denies: Chest pain, Lightheadedness, Exertional dyspnea, Decr. exercise tolerance - Respiratory Respiratory: denies: Cough, SOB at rest, SOB with exertion - Gastrointestinal Gastrointestinal: reports: Abdominal pain, Nausea, Vomiting - Genitourinary Genitourinary: reports: Flank pain. denies: Dysuria, Frequency, Urgency, Hematuria - Musculoskeletal Musculoskeletal: reports: Back pain (Neck.), Stiffness - Integumentary Integumentary: denies: Rash - Neurological Neurological: reports: Headache. denies: General weakness, Focal weakness - Hematologic/Lymphatic Hematologic/Lymphatic: reports: Bruising. denies: Bleeding tendencies - All Other Systems All Other Systems: reports: Reviewed and negative Prior Level of Functionality: She is independent with her ADL's. Exam - Vital Signs Reviewed Vital Signs: Yes Vital Signs: Vital Signs x48h Temp Pulse Resp BP Pulse Ox 10/13/20 04:38 37.7 C 135 H 20 110/55 L 100 - Physical Exam General Appearance: positive: Alert, Mild distress Eyes Bilateral: positive: Normal inspection, Conjunctivae nml ENT: positive: ENT inspection nml Neck: positive: Nml inspection Respiratory: positive: No respiratory distress. negative: Wheezes, Rales Cardiovascular: positive: Regular rate & rhythm, Irregularly irregular, Tachycardia. negative: Bradycardia, Systolic murmur Abdomen: positive: Tenderness (She is tender throughout her upper abdomen.). negative: Guarding, Rebound Skin: positive: No rash, Warm, Dry Extremities: positive: No pedal edema Neurologic/Psychiatric: positive: Motor nml. negative: Disoriented to person, Disoriented to place, Disoriented to time Sepsis Event Note (H) - Evaluation Current Stage of Sepsis: Sepsis - Sepsis Criteria Sepsis Criteria: Recorded Heart Rate greater than 90 bpm, WBC count greater than 12,000 or less than 4000 Conclusion/Plan - Problem List (1) Sepsis Conclusion/Plan: She meets sepsis criteria given the tachycardia and leukocytosis. This appears be secondary to the left pyelonephritis. Concerns for potential bacteremia given her headache, chills and evidence of systemic infection. She has been afebrile here and normotensive. We will keep her on ceftriaxone IV and gently hydrate her with IV lactated Ringer's. Follow-up urine and blood cultures from the day prior. (2) Pyelonephritis Conclusion/Plan: This appears to be the cause of her sepsis. Her urinalysis is suggestive of infection and CT showed evidence of left-sided pyelonephritis. Her white count is improved but still quite elevated. We will keep her on ceftriaxone IV and treat her pain with Tylenol, oxycodone, Toradol as needed. Will use Zofran as needed for nausea. IV hydration with lactated Ringer's. (3) Hypokalemia Conclusion/Plan: Potassium was decreased at 3.1. We will replace this intravenously given her nausea and vomiting. (4) Renal atrophy, right Conclusion/Plan: CT yesterday revealed right renal atrophy and scarring. Her renal function is within normal limits. Patient is aware of this and I have recommended follow-up with her primary care provider for consideration of duplex of the right kidney and potential follow with nephrology or urology if warranted. - Lab Results Lab results reviewed: Yes Fish Bones: 10/13/20 05:00 10/13/20 05:00 - Diagnostic Imaging Results Diagnostic Imaging Results: positive: Final report reviewed Core Measures - Anticipated LOS I expect patient to be DC'd or transferred within 96 hours.: Yes - Issues Hospital Issues and Management Plan: 25-year-old female recently diagnosed with pyelonephritis presents again due to worsening pain as well as nausea and vomiting. We will place in observation for IV antibiotics as we follow-up cultures. - DVT/VTE - Prophylaxis VTE/DVT Device ordered at admit?: No Not Ordered - Low Risk: Low Risk VTE/DVT Prophylaxis med ordered at admit?: No Not Ordered - Medical Reason: Not indicated
[2020-10-13] MEDS: LACTATED RINGERS 1,000 ML IV SCH ×2 (06:35→18:10)
[2020-10-13] MEDS: POTASSIUM CHLOR 10 MEQ/100 ML 10 MEQ/100 ML BAG IV SCH ×4 (06:40→12:29)
[2020-10-13] MEDS: SODIUM CHLORIDE FLUSH 0.9% 10 ML SYRINGE IVP SCH ×2 (08:05→16:08)
[2020-10-13] MEDS: ACETAMINOPHEN 325 MG TABLET PO PRN ×2 (10:15→17:05)
[2020-10-13 10:28] LABS: ABSOLUTE RETICS # AUTO 0.029 10^6/uL (0.020-0.110); RED BLOOD COUNT 3.78 10^6/uL (4.20-5.40); RETICULOCYTE COUNT % (AUTO) 0.76 % (0.5-2.3)
[2020-10-13 11:02] LABS: FERRITIN 28.2 ng/mL (11.0-306.8)
[2020-10-13] MEDS: KETOROLAC 15 MG/ML VIAL IVP PRN ×2 (11:18→18:11)
[2020-10-13 11:22] LABS: % IRON SATURATION 2 % (20-50); IRON 8 ug/dL (28-170); TOTAL IRON BINDING CAPACITY 346 ug/dL (250-450); TRANSFERRIN 247 mg/dL (192-382)
[2020-10-13] MEDS ORDERED: IRON DEXTRAN 200 MG in SODIUM CHLORIDE 0.9% 100ML 100 ML IV ONE (13:16)
[2020-10-13] MEDS ORDERED: IRON DEXTRAN 1,000 MG in SODIUM CHLORIDE 0.9% 250 ML IV ONE (14:30)
[2020-10-13] MEDS: oxyCODONE 5 MG TABLET PO PRN (16:08)
[2020-10-13] MEDS: SODIUM CHLORIDE FLUSH 0.9% 10 ML SYRINGE IVP PRN (16:08)
[2020-10-13] MEDS: MORPHINE 2 MG/ML CARPUJECT IVP PRN (17:05)
[2020-10-14] MEDS: SODIUM CHLORIDE FLUSH 0.9% 10 ML SYRINGE IVP SCH ×4 (00:32→23:55)
[2020-10-14] MEDS: ACETAMINOPHEN 325 MG TABLET PO PRN ×5 (00:42→22:43)
[2020-10-14] MEDS: KETOROLAC 15 MG/ML VIAL IVP PRN (04:44)
--- NOTE | 2020-10-14 07:08 | PHARMACY PROGRESS NOTE ---
- Best Possible Medication History Admit Date and Time: 10/13/20 0526 Processed by: Pharmacy Medication History completed: Yes Patient Interview: Completed (PATIENT UNAVAILABLE, MED REC COMPLETED USING INSURANCE REPORT) As the person ultimately responsible for medication therapy, providers are able to order a medication from an existing home medication list in [facility] via the "Reconcile Routine" prior to Confirmation of that medication by technical support agent. Such practice is discouraged except when the physician, in their clinical judgment, deems that a medical need exists for a medication without regard to previous use.
[2020-10-14 07:20] LABS: BASOPHILS # (AUTO) 0.1 10^3/uL (0.0-0.1); BASOPHILS % (AUTO) 0.3 %; EOSINOPHILS # (AUTO) 0.2 10^3/uL (0.0-0.7); EOSINOPHILS % (AUTO) 1.1 %; HCT - HEMATOCRIT 25.4 % (37.0-47.0); HGB - HEMOGLOBIN 8.3 g/dL (12.0-16.0); LYMPHOCYTES # (AUTO) 2.4 10^3/uL (1.5-3.5); LYMPHOCYTES % (AUTO) 12.4 %; MEAN CORPUSCULAR HEMOGLOBIN 23.1 pg (27.0-31.0); MEAN CORPUSCULAR HGB CONC 32.7 g/dL (32.0-36.0); MEAN CORPUSCULAR VOLUME 70.8 fL (81.0-99.0); MEAN PLATELET VOLUME 9.7 fL (7.9-10.8); MONOCYTES # (AUTO) 2.1 10^3/uL (0.0-1.0); MONOCYTES % (AUTO) 10.8 %; NEUTROPHILS # (AUTO) 14.6 10^3/uL (1.5-6.6); NEUTROPHILS % (AUTO) 74.5 %; PLT - PLATELET COUNT 361 10^3/uL (130-450); RED BLOOD COUNT 3.59 10^6/uL (4.20-5.40); RED CELL DISTRIBUTION WIDTH 18.5 % (12.0-15.0); WHITE BLOOD COUNT 19.6 x10^3/uL (4.8-10.8)
[2020-10-14 07:24] LABS: SLIDE REVIEW? Indicated
[2020-10-14 07:25] LABS: CALCIUM 8.5 mg/dL (8.5-10.3); CREATININE 0.9 mg/dL (0.4-1.0); POTASSIUM 3.3 mmol/L (3.5-5.0)
[2020-10-14] MEDS: oxyCODONE 5 MG TABLET PO PRN ×2 (07:53→16:18)
[2020-10-14 07:58] LABS: PLATELET ESTIMATE, MANUAL NORMAL (130-450,000) (NORMAL); PLATELET MORPHOLOGY NORMAL APPEARANCE (NORMAL); RBC MORPHOLOGY (MULTIPLE) NORMAL APPEARANCE (NORMAL); WBC MORPHOLOGY (MULTIPLE) NORMAL APPEARANCE (NORMAL)
[2020-10-14] MEDS ORDERED: cefTRIAXone 1 GM in SODIUM CHLORIDE 0.9% MINIBAG 100 ML IV SCH (09:00)
[2020-10-14] MEDS ORDERED: POTASSIUM CHLORIDE 20 MEQ TABLET PO ONE (13:34)
--- NOTE | 2020-10-14 13:38 | PROVIDER PROGRESS NOTE ---
Subjective - Prog Note Date Prog Note Date: 10/14/20 Prog Note Time: 13:35 - Subjective Pt reports feeling: Improved Subjective: She states that her flank pain is improved. Appetite slowly coming back. But still having waves of rigors and fevers at times. Denies chest pain, palpitations, abdominal pain. No blood in the urine. Current Medications - Current Medications Current Medications: Active Medications Acetaminophen (Acetaminophen 325 Mg Tablet) 650 mg PO Q4HR PRN PRN Reason: Pain 1 to 4 Last Admin: 10/14/20 08:02 Dose: 650 mg Documented by: Ceftriaxone Sodium 1 gm/ (Sodium Chloride) 100 mls @ 200 mls/hr IV DAILY [facility] Last Infusion: 10/14/20 08:35 Dose: Infused Documented by: Ketorolac Tromethamine (Ketorolac 15 Mg/Ml Vial) 15 mg IVP Q6HR PRN PRN Reason: PAIN Stop: 10/18/20 05:28 Last Admin: 10/14/20 04:44 Dose: 15 mg Documented by: Morphine Sulfate (Morphine 2 Mg/Ml Carpuject) 2 mg IVP Q2HR PRN PRN Reason: Pain 8 to 10 Last Admin: 10/13/20 17:05 Dose: 2 mg Documented by: Ondansetron HCl (Ondansetron Odt 4 Mg Tablet) 4 mg TL Q6HR PRN PRN Reason: Nausea / Vomiting Ondansetron HCl (Ondansetron 4 Mg/2 Ml Vial) 4 mg IVP Q6HR PRN PRN Reason: Nausea / Vomiting Last Admin: 10/13/20 16:08 Dose: 4 mg Documented by: Oxycodone HCl (Oxycodone 5 Mg Tablet) 5 mg PO Q4HR PRN PRN Reason: Pain 5 to 7 Last Admin: 10/14/20 07:53 Dose: 5 mg Documented by: Sodium Chloride (Sodium Chloride Flush 0.9% 10 Ml Syringe) 10 ml IVP PRN PRN PRN Reason: NEEDED PER PROVIDER ORDERS Last Admin: 10/13/20 16:08 Dose: 10 ml Documented by: Sodium Chloride (Sodium Chloride Flush 0.9% 10 Ml Syringe) 10 ml IVP 0100,0900,1700 [facility] Last Admin: 10/14/20 07:54 Dose: 10 ml Documented by: Docusate Sodium [Dulcolax Stool Softener] 100 mg PO DAILY PRN 10/13/20 Ferrous Sulfate 325 mg PO BID 10/13/20 Objective - Vital Signs/Intake & Output Reviewed Vital Signs: Yes Vital Signs: Vital Signs x48h Temp Pulse Resp BP Pulse Ox 10/14/20 11:40 36.7 C 80 16 123/71 98 10/14/20 08:59 37.6 C 10/14/20 07:59 39.4 C H 97 18 132/72 H 99 Intake & Output: Intake & Output 10/11/20 10/12/20 10/13/20 10/14/20 23:59 23:59 23:59 23:59 Intake Total 3045.000 2920 Balance 3045.000 2920 - Objective General Appearance: positive: Alert Eyes Bilateral: positive: PERRL, EOMI ENT: positive: No signs of dehydration Neck: positive: No JVD Respiratory: positive: No respiratory distress. negative: Wheezes, Rales, Rhonchi Cardiovascular: positive: Regular rate & rhythm. negative: Gallop/S4, Friction rub Abdomen: positive: Non-tender, No organomegaly, Nml bowel sounds, No distention, Other (Left flank pain is still present but she says is much better than it was on admission) Skin: positive: Warm, Dry Extremities: positive: Non-tender, Full ROM, No pedal edema Neurologic/Psychiatric: positive: Oriented x3, CN's nml (2-12), Motor nml, Sensation nml - Lab Results Fish Bones: 10/14/20 06:50 10/14/20 06:50 Other Labs: Lab Results x24hrs 10/14/20 10/14/20 Range/Units 06:50 06:50 WBC 19.6 H (4.8-10.8) x10^3/uL RBC 3.59 L (4.20-5.40) 10^6/uL Hgb 8.3 L (12.0-16.0) g/dL Hct 25.4 L (37.0-47.0) % MCV 70.8 L (81.0-99.0) fL MCH 23.1 L (27.0-31.0) pg MCHC 32.7 (32.0-36.0) g/dL RDW 18.5 H (12.0-15.0) % Plt Count 361 (130-450) 10^3/uL MPV 9.7 (7.9-10.8) fL Neut # (Auto) 14.6 H (1.5-6.6) 10^3/uL Lymph # (Auto) 2.4 (1.5-3.5) 10^3/uL [place] # (Auto) 2.1 H (0.0-1.0) 10^3/uL Eos # (Auto) 0.2 (0.0-0.7) 10^3/uL Baso # (Auto) 0.1 (0.0-0.1) 10^3/uL Absolute Nucleated RBC 0.00 x10^3/uL Nucleated RBC % 0.0 /100WBC Manual Slide Review Indicated WBC Morphology NORMAL APPEARANCE (NORMAL) Platelet Estimate NORMAL (130-450,000) (NORMAL) Platelet Morphology NORMAL APPEARANCE (NORMAL) RBC Morph Micro Appear NORMAL APPEARANCE (NORMAL) Sodium 137 (135-145) mmol/L Potassium 3.3 L (3.5-5.0) mmol/L Chloride 106 (101-111) mmol/L Carbon Dioxide 21 (21-32) mmol/L Anion Gap 10.0 (6-13) BUN 7 (6-20) mg/dL Creatinine 0.9 (0.4-1.0) mg/dL Estimated GFR (MDRD) 93 (>89) Glucose 88 (70-100) mg/dL Calcium 8.5 (8.5-10.3) mg/dL ABX Reporting Has patient been on IV antibiotics over the past 48 hours?: Yes Sepsis Event Note (H) - Evaluation Current Stage of Sepsis: Resolved - Sepsis Criteria Sepsis Criteria: Recorded Heart Rate greater than 90 bpm, WBC count greater than 12,000 or less than 4000 Assessment/Plan - Problem List (1) Sepsis Impression: She met sepsis criteria on admission, given the tachycardia and leukocytosis. It was secondary to the left pyelonephritis. Concerns for potential bacteremia given her headache, chills and evidence of systemic infection. White cell count has gone from 25.5 and down to 19.6 today. On her first day with us, the , she had 2 temperature spikes to 38.2 and 39.1. She had another temperature spike this morning to 39.4. Plan: Treat underlying cause of sepsis. Patient is observation status. After discussion with case management she will stay observation status. (2) Pyelonephritis Conclusion/Plan: Blood cultures are negative from October 12 with her first visit to the emergency room. Urine culture is positive for E. coli. It is sensitive to all expected antibiotics on antibiogram. IV fluids for hydration, antiemetics, ketorolac for pain. Last dose of morphine was yesterday evening at 5 PM. Plan: Continue Rocephin. Continue to monitor for fever and WBC going down. When she stops having fevers, change to p.o. We have already did a CT to make sure she is not obstructed. (3) Hypokalemia Conclusion/Plan: Potassium Needs to be decreased. Previously we gave her K riders because she had nausea and vomiting. Today, that is resolved. I will use p.o. potassium supplement (4) Renal atrophy, right Conclusion/Plan: CT on 10/12 revealed right renal atrophy and scarring. Her renal function is within normal limits. Patient is aware of this and I have recommended follow-up with her primary care provider for consideration of duplex of the right kidney and potential follow with nephrology or urology if warranted. (5) Breast feeding status of mother Conclusion/Plan: She may want to consider pumping for a few days to keep breast milk coming in and then resume breast feeding once she on po abx depending on the abx.
[2020-10-14] MEDS: SODIUM CHLORIDE FLUSH 0.9% 10 ML SYRINGE IVP PRN (14:12)
[2020-10-14] MEDS: MORPHINE 2 MG/ML CARPUJECT IVP PRN (14:12)
[2020-10-15] MEDS: oxyCODONE 5 MG TABLET PO PRN ×3 (04:47→23:44)
[2020-10-15] MEDS: ACETAMINOPHEN 325 MG TABLET PO PRN (04:48)
[2020-10-15 05:41] LABS: BASOPHILS % (AUTO) 0.2 %; EOSINOPHILS % (AUTO) 0.7 %; HCT - HEMATOCRIT 24.5 % (37.0-47.0); LYMPHOCYTES % (AUTO) 14.4 %; MEAN CORPUSCULAR HEMOGLOBIN 22.4 pg (27.0-31.0); MEAN CORPUSCULAR HGB CONC 32.7 g/dL (32.0-36.0); MEAN CORPUSCULAR VOLUME 68.6 fL (81.0-99.0); MEAN PLATELET VOLUME 8.7 fL (7.9-10.8); MONOCYTES % (AUTO) 11.2 %; NEUTROPHILS % (AUTO) 71.9 %; PLT - PLATELET COUNT 412 10^3/uL (130-450); RED BLOOD COUNT 3.57 10^6/uL (4.20-5.40); RED CELL DISTRIBUTION WIDTH 18.2 % (12.0-15.0); WHITE BLOOD COUNT 17.6 x10^3/uL (4.8-10.8)
[2020-10-15 05:45] LABS: ABNORMAL LYMPHS % (MANUAL) 0 %; BAND NEUTROPHILS % (MANUAL) 0 %
[2020-10-15 05:53] LABS: CALCIUM 8.8 mg/dL (8.5-10.3); CREATININE 0.8 mg/dL (0.4-1.0); POTASSIUM 3.3 mmol/L (3.5-5.0)
[2020-10-15 06:07] LABS: DIFFERENTIAL COMMENT MANUAL DIFFERENTIAL; LYMPHOCYTES # (MANUAL) 1.9 10^3/uL (1.5-3.5); LYMPHOCYTES % (MANUAL) 11 %; MONOCYTES # (MANUAL) 2.5 10^3/uL (0.0-1.0); NEUTROPHILS # (MANUAL) 13.2 10^3/uL (1.5-6.6); PLATELET ESTIMATE, MANUAL NORMAL (130-450,000) (NORMAL); PLATELET MORPHOLOGY NORMAL APPEARANCE (NORMAL); RBC MORPHOLOGY (MULTIPLE) 1+ MICROCYTOSIS (NORMAL); WBC MORPHOLOGY (MULTIPLE) NORMAL APPEARANCE (NORMAL)
[2020-10-15] MEDS ORDERED: POTASSIUM CHLORIDE 20 MEQ TABLET PO ONE ×2 (07:18→14:00)
[2020-10-15] MEDS: SODIUM CHLORIDE FLUSH 0.9% 10 ML SYRINGE IVP SCH ×3 (08:43→23:45)
[2020-10-15] MEDS: CIPROFLOXACIN 400 MG/200 ML 400 MG/200 ML BAG IV SCH ×2 (08:43→20:39)
[2020-10-15] MEDS: KETOROLAC 15 MG/ML VIAL IVP PRN (13:15)
[2020-10-15] MEDS: SODIUM CHLORIDE FLUSH 0.9% 10 ML SYRINGE IVP PRN (20:39)
[2020-10-16 07:38] VITALS: BP 115/64
[2020-10-16] MEDS: CIPROFLOXACIN 400 MG/200 ML 400 MG/200 ML BAG IV SCH ×2 (07:57→09:57)
[2020-10-16] MEDS: SODIUM CHLORIDE FLUSH 0.9% 10 ML SYRINGE IVP SCH (07:58)
[2020-10-16 08:56] LABS: BASOPHILS # (AUTO) 0.1 10^3/uL (0.0-0.1); BASOPHILS % (AUTO) 0.4 %; EOSINOPHILS # (AUTO) 0.3 10^3/uL (0.0-0.7); EOSINOPHILS % (AUTO) 1.7 %; HCT - HEMATOCRIT 27.7 % (37.0-47.0); HGB - HEMOGLOBIN 8.7 g/dL (12.0-16.0); LYMPHOCYTES # (AUTO) 3.8 10^3/uL (1.5-3.5); LYMPHOCYTES % (AUTO) 24.1 %; MEAN CORPUSCULAR HGB CONC 31.4 g/dL (32.0-36.0); MEAN CORPUSCULAR VOLUME 70.1 fL (81.0-99.0); MEAN PLATELET VOLUME 9.3 fL (7.9-10.8); MONOCYTES # (AUTO) 1.4 10^3/uL (0.0-1.0); MONOCYTES % (AUTO) 8.9 %; NEUTROPHILS # (AUTO) 9.9 10^3/uL (1.5-6.6); NEUTROPHILS % (AUTO) 62.4 %; PLT - PLATELET COUNT 476 10^3/uL (130-450); RED BLOOD COUNT 3.95 10^6/uL (4.20-5.40); RED CELL DISTRIBUTION WIDTH 18.4 % (12.0-15.0); WHITE BLOOD COUNT 15.8 x10^3/uL (4.8-10.8)
[2020-10-16 08:59] LABS: CREATININE 0.8 mg/dL (0.4-1.0); POTASSIUM 3.8 mmol/L (3.5-5.0)
--- NOTE | 2020-10-16 10:18 | Discharge Plan ---
Discharge Plan Problem Reviewed?: Yes Disposition: Home, Self Care Condition: Stable Prescriptions: Ciprofloxacin [Cipro] 500 mg PO Q12H #28 tablet Diet: Regular Activity Restrictions: Activity as Tolerated Shower Restrictions: No Driving Restrictions: No Instruction Topics: Pyelonephritis Dc Health Concerns: You had been seen in the emergency room for back pain and a urinary tract infection that we felt was a true kidney infection called pyelonephritis. You opted to go home but you had to come back because the pain was getting worse. You had an elevated white cell count, fast heart rate, fever that was up to 39 celcius degrees. This was all compatible with someone who had sepsis. Your urine grew out a bacteria called E. coli. We initially had you on antibiotics that were supposed to cover E. coli but you continue to have an elevated white cell count and fever so we switched you to something called ciprofloxacin. That was the trick. Your fever came down. Your white cell count came down. Pain came down. You feels stable enough to go back home. Plan of Treatment: Because your kidney infection is very severe, and your other kidney is already very shrunken, it is very important to protect the kidney you have left. Complete ciprofloxacin 500 mg (that will be two 250 mg tabletsm twice a day) and I have given you enough for 10 more days. Because antibiotics can sometimes cause imbalance with the bacteria in your bowel, start an [id number] probiotic that has lactobacillus in it. Take it once or twice a day. Please see your primary care provider, Yadira Treviño, in follow-up. Care Goals: To get a work-up for your shrunken kidney to see why. And to finish her antibiotics and get cured of the pyelonephritis. Assessment: Is very happy to be leaving the hospital, and promises to follow through No Smoking: If you smoke, Please STOP! Call for help. Follow-up with: CHAVEZ COOPER [Primary Care Provider] - Yadira Treviño ARNP [Provider Admit Priv/Credential] -
--- NOTE | 2020-10-16 10:33 | DISCHARGE SUMMARY ---
"Discharge Summary Admit Date: 10/13/20 Discharge Date: 10/16/20 Discharging Provider: Natalia Valentin MD Primary Care Provider: Yadira Treviño Code Status: Attempt Resuscitation Condition at Discharge: Stable Discharge Disposition: 01 Home, Self Care - DIAGNOSES Discharge Diagnoses with Status of Each Condition: 1. Sepsis, resolved 2. Left-sided pyelonephritis with E. coli 3. Hypokalemia 4. Right renal atrophy 5. Iron deficiency anemia 6. Breast feeding status of mother - HPI History of Present Illness: This is a 25-year-old female with no significant past medical history who presents this morning complaining of chills and bilateral flank pain. She was seen yesterday in the emergency department after she had complained of chills, headaches for the past 2 to 3 days. She has not had any dysuria, urgency, frequency. Yesterday in the emergency department she had no flank pain but she underwent a CT of the abdomen pelvis and was noted to have left pyelonephritis. Her white count was also noted to be elevated at greater than 30,000. She was given ceftriaxone IV and given the patient preferred to go home, she was discharged on Keflex. She states after she went home she started to develop worsening chills, headache and now she had flank pain. She also complained of epigastric abdominal pain and had nausea and a small amount of emesis yesterday evening. Given her ongoing symptoms she returned to the emergency department earlier this morning. She has reported subjective fevers but does not have a t hermometer at home to measure her temperature. She was checked for Covid yesterday and this was negative. She still does not have any dysuria or urgency but does complain of the flank pain which is worse on the left side. She also complains of headache and neck stiffness. She is currently breast-feeding her 2-month-old child. Here in the emergency department, she was noted to be afebrile but tachycardic with a heart rate in the 130s. Her labs still revealed a significant leukocytosis. Her potassium was 3.1. Given her ongoing symptoms, medicine was consulted for admission. - Past Medical History Cardiovascular: reports: None Respiratory: reports: None Neuro: reports: None Endocrine/Autoimmune: reports: None GI: reports: None [employer] ROOM: reports: None HEENT: reports: None Psych: reports: None Musculoskeletal: reports: None Derm: reports: None MRSA Hx?: No Other Past Medical History: Urinary tract infection/ Pyelonephritis. - CONSULTS | PROCEDURES Procedures: CT of abdomen was done before she was admitted. As such it is not on this current account. CT reviewed before admission shows no hydronephrosis. An a trophic right kidney. Changes of pyelonephritis on the left kidney. Urine culture from the day before shows E. coli. Sensitive to Appropriate antibiotics on antibiogram - HOSPITAL COURSE Hospital Course: She was initially placed on IV Rocephin. Symptoms of sepsis resolved. However she continued to have a white cell count. And intermittent fever spikes to 39 degrees. Sensitivity showed the antibiotic to be appropriate. However with the continued fever spikes we changed her to ciprofloxacin. Over 24 hours she had no fever. Left sided flank pain was now resolved. She was eating 100% of her food, ambulating in her room to the bathroom without any difficulty or need for assistance. On examination at discharge temperature was 37. Heart rate 73. Blood pressure 115/64. Respirations 18 and unlabored and she is 100% on room air. She is a yevgeniy 5 foot 4 inch female who weighs 65.77 kg. She is alert, oriented, lucid speech. Neck is supple. No goiter or bruits. Lungs are clear to auscultation and percussion and she is without crackles rhonchi wheezing. No increased respiratory effort with exertion. Regular rate and rhythm without a murmur. The abdomen is soft, nontender, normal bowel sounds. Extremities are warm, without clubbing cyanosis or edema. Greater than 30 minutes was spent coordinating discharge. She is a young mother of a 5-year-old, 3-year-old and a 2-month-old. I have asked social work to make contact with any social support at the [employer] to see if there is anybody that can help her. While she has recovered from her acute illness I would think she needs some help with childcare at home considering how exhausted she is. During her stay here I did give her 1000 mg of iron dextran. Her iron level was 8. TIBC 346. Percent saturation 2% with transferring to 47. Ferritin 28.2. B12 823. I have asked her to follow-up with her primary care provider to consider scheduling her for regular iron infusions until she is back to normal. - ALLERGIES Allergies/Adverse Reactions: Allergies Allergy/AdvReac Type Severity Reaction Status Date / Time No Known Drug Allergies Allergy Verified 10/12/20 14:09 - MEDICATIONS Home Medications: Ambulatory Orders Medication Instructions Recorded Confirmed RX: Docusate Sodium [Dulcolax 100 mg PO DAILY PRN 10/13/20 10/14/20 Stool Softener] RX: Ferrous Sulfate 325 mg PO BID 10/13/20 10/14/20 Ciprofloxacin [Cipro] 500 mg PO Q12H #28 tablet 10/16/20 - LABS Result Diagrams: 10/16/20 08:45 10/16/20 08:45 - SEPSIS Current Stage of Sepsis: Resolved Sepsis Criteria: Recorded Heart Rate greater than 90 bpm, WBC count greater than 12,000 or less than 4000"
== END 2020-10-16 10:50 | disposition home or self-care (01) | DRG 872 ==
LOC: ED 04:22 → MS2 05:26 → OBSVTOIN 10-15 14:51
PROVIDERS: ADMIT Internal Medicine; ATTEND Specialist
DX: A41.51 Sepsis due to Escherichia coli [E. coli] (principal); N12 Tubulo-interstitial nephritis, not specified as acute or chronic; E87.6 Hypokalemia; D50.9 Iron deficiency anemia, unspecified; N26.1 Atrophy of kidney (terminal)
CPT/HCPCS: 36415; 80048; 80053; 82607; 82728; 83540; 83615; 83690; 84466; 85025; 85045; 93005; 96365; 96366; 96367; 96375; 96376; 99284; 99285; A9270; G0378; J1750; J7120